=== PATIENT | male | born 1975 | race Caucasian/White ===

== ENCOUNTER 2020-05-09 14:44 | Emergency (ER) | payer MEDICAID ==
--- NOTE | 2020-05-09 15:28 | EDM.PDOC ---
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 Right Finger-Thumb Pain Score (Numeric/FACES): 3 - Related Data Allergies Allergy/AdvReac Type Severity Reaction Status Date / Time No Known Allergies Allergy Verified 05/09/20 14:59 Home Meds: Home Meds NK [No Known Home Meds] 05/09/20 [History] Past Medical History - Past Health History Medical/Surgical History: Denies Medical/Surgical History Social & Family History - Tobacco Use Tobacco Use Status *Q: Never Tobacco User Second Hand Smoke Exposure: No - Caffeine Use Caffeine Use: Reports: Coffee - Recreational Drug Use Recreational Drug Use: No Review of Systems - Review of Systems Review Of Systems: See Below Musculoskeletal: Reports: Hand Pain ED EXAM, GENERAL - Physical Exam Exam: See Below Free Text/Narrative:: Examination of the right hand I do appreciate some bruising over the middle phalanges there is some edema around the middle phalanges he has full range of motion of all digits radial pulses +2 Course - Vital Signs Last Recorded V/S: Last Vital Signs Temp 98 F 05/09/20 15:02 Pulse 69 05/09/20 15:02 Resp 16 05/09/20 15:02 BP 132/65 05/09/20 15:02 Pulse Ox 96 05/09/20 15:02 - Orders/Labs/Meds Orders: Active Orders 24 hr Category Date Time Status Fingers Thumb Rt F5 [CR] Stat Exams 05/09/20 15:02 Taken Departure - Departure Time of Disposition: 15:27 Disposition: Home, Self-Care 01 Condition: Fair Clinical Impression: Sprain of right thumb Qualifiers: Encounter type: initial encounter Sprain of finger site: interphalangeal joint Qualified Code(s): S63.621A - Sprain of interphalangeal joint of right thumb, initial encounter - Discharge Information Instructions: Thumb Sprain Referrals: PCP,None [Primary Care Provider] - Additional Instructions: Use Tylenol or Motrin as needed for pain control, try some ice, please followup with your primary care provider in 3-5 days if not better, please call return to the emergency department with worsening of symptoms. Sepsis Event Note (ED) - Evaluation Sepsis Screening Result: No Definite Risk - Focused Exam Vital Signs: Vital Signs Temp Pulse Resp BP Pulse Ox 05/09/20 15:02 98 F 69 16 132/65 96 05/09/20 14:56 98 F 69 16 132/65 96 - My Orders Last 24 Hours: My Active Orders 05/09/20 15:02 Fingers Thumb Rt F5 [CR] Stat - Assessment/Plan Last 24 Hours: My Active Orders 05/09/20 15:02 Fingers Thumb Rt F5 [CR] Stat Plan: Assessment Acuity = acute Site and laterality = thumb sprain right hand Etiology = trauma Manifestations = none Location of injury = Home Lab values = thumb x-ray I did review films myself I cannot appreciate any acute process, the official read from radiology is pending Plan Recommend symptomatic care Tylenol Motrin ice rest we will contact him if the radiology read is different otherwise follow-up primary care 3 to 5 days if not better This note was dictated using [employer] voice recognition software please call with any questions on syntax or grammar.
--- NOTE | 2020-05-10 09:56 | CR ---
Fingers Thumb Rt F5 CLINICAL HISTORY: Injury FINDINGS: No fracture or dislocation is seen. There is no foreign body IMPRESSION: Negative
== END 2020-05-09 15:35 | disposition home or self-care (01) ==
LOC: JP.ED 14:44
DX: S63.621A Sprain of interphalangeal joint of right thumb, initial encounter (principal); X58.XXXA Exposure to other specified factors, initial encounter
CPT/HCPCS: 73140-26-F5; 73140-F5; 99282; 99283